=== PATIENT | female | born 1965 | race Caucasian/White ===

== ENCOUNTER → 2018-01-15 | Outpatient (CLI) | payer OTHER ==
[~2018-01-15] MED LIST: LOR5/325 PO; PER PO; REQUIP PO; TYLENOL PM PO
--- NOTE | 2018-01-15 16:51 | RADIOLOGY IMAGING REPORT ---
FACILITY: [facility] [place] PATIENT NAME: RERE LINDQUIST : [id number] MR: [id number] V: [id number] EXAM DATE: [id number] ORDERING PHYSICIAN: ELISEO DE JESUS TECHNOLOGIST: Arabella Francisco PROCEDURE:BILATERAL DIGITAL SCREENING MAMMOGRAM WITH CAD ASSISTED INTERPRETATION & 3D TOMOSYNTHESIS COMPARISON:Prior mammograms 05/25/16, 04/22/15, 04/15/14, 02/17/13. INDICATIONS:screening FINDINGS: Moderately dense heterogeneous fibroglandular tissue is seen throughout the breasts. Surgical clips in the medial inferior Left breast again noted. Just lateral to the mid nipple line junction of the middle and posterior 1/3 of the Left breast on the Left CC view is a focal area of increased density not definitively seen on prior study for which Spot compression view is recommended. In the upper portion of the Left breast on the Left MLO view junction of the middle and posterior 1/3 is a focal area of increased density for which Spot compression view is recommended. DIAGNOSTIC CATEGORY 0--INCOMPLETE: NEED ADDITIONAL IMAGING EVALUATION. RECOMMENDATIONS: ADDITIONAL MAMMOGRAPHIC VIEWS REQUIRED: LEFT BREAST. IMPRESSION: BIRADS 0: Incomplete. Additional views of the Left breast recommended for further evaluation. Dictated by: Christine Jha M.D. on 01/15/2018 at 15:50 Transcribed by: DINA on 01/15/2018 at 16:01 Approved by: Christine Jha M.D. on 01/15/2018 at 16:50 [facility]
== END ==
LOC: MAMO 02:42
PROVIDERS: ATTEND Family Medicine
DX: Z12.31 Encounter for screening mammogram for malignant neoplasm of breast (principal); R92.8 Other abnormal and inconclusive findings on diagnostic imaging of breast
CPT/HCPCS: 77063; 77067

== ENCOUNTER → 2018-02-12 | Outpatient (CLI) | payer OTHER ==
--- NOTE | 2018-02-12 14:52 | RADIOLOGY IMAGING REPORT ---
FACILITY: [facility] [place] PATIENT NAME: RERE LINDQUIST : [id number] MR: [id number] V: [id number] EXAM DATE: ORDERING PHYSICIAN: ELISEO DE JESUS TECHNOLOGIST: Arabella Francisco PROCEDURE:LEFT DIGITAL DIAGNOSTIC MAMMOGRAM WITH CAD ASSISTED INTERPRETATION & 3D TOMOSYNTHESIS COMPARISON:Prior mammograms 01/15/18, 05/25/16, 04/22/15, 04/15/14, 02/17/13. INDICATIONS:FUTHER EVAL FINDINGS: The patient returns for Spot compression view in the Left CC and MLO projections. The nodular area in the deep central Left breast on the recent Left CC view appeared compressible. The nodular area just above mid nipple line on the Left MLO view appeared to represent a well circumscribed nodule. Today's Left breast Ultrasound did demonstrate multiple cysts in the Left breast which would account for this finding. DIAGNOSTIC CATEGORY 2--BENIGN FINDING. RECOMMENDATIONS: ROUTINE MAMMOGRAM AND CLINICAL EVALUATION. IMPRESSION: BIRADS 2: Benign finding. There are multiple Left breast cysts as described in Today's Left breast Ultrasound. Dictated by: Christine Jha M.D. on 02/12/2018 at 13:26 Transcribed by: DINA on 02/12/2018 at 13:43 Approved by: Christine Jha M.D. on 02/12/2018 at 14:51 [facility]
--- NOTE | 2018-02-12 14:52 | RADIOLOGY IMAGING REPORT ---
FACILITY: [facility] [place] PATIENT NAME: RERE LINDQUIST : [id number] MR: [id number] V: [id number] EXAM DATE: [id number] ORDERING PHYSICIAN: ELISEO DE JESUS TECHNOLOGIST: Cristian Snider RDMS, RD PROCEDURE:US LEFT BREAST COMPARISON:Today's mammogram. INDICATIONS:FURTHER EVAL FINDINGS: In the 4 o'clock position of the Left breast there is a 5.4mm simple cyst. In the 3:30 position of the Left breast 6cm from the nipple is 5.5mm cyst and a 6.1mm cyst. In the 12 o'clock position of the Left breast 4cm from the nipple there is a 6.8mm cyst. DIAGNOSTIC CATEGORY 2--BENIGN FINDING. RECOMMENDATIONS: ROUTINE MAMMOGRAM AND CLINICAL EVALUATION. IMPRESSION: BIRADS 2: Benign finding. There are multiple Left sided breast cysts. This would account for Today's mammographic findings . Dictated by: Christine Jha M.D. on 02/12/2018 at 13:24 Transcribed by: DINA on 02/12/2018 at 13:54 Approved by: Christine Jha M.D. on 02/12/2018 at 14:51 [facility]
== END ==
LOC: MAMO 00:31
PROVIDERS: ATTEND Family Medicine
DX: Z12.31 Encounter for screening mammogram for malignant neoplasm of breast (principal); N60.82 Other benign mammary dysplasias of left breast
CPT/HCPCS: 77061; 77065

== ENCOUNTER → 2018-11-14 | Outpatient (CLI) | payer OTHER ==
--- NOTE | 2018-11-14 15:10 | RADIOLOGY IMAGING REPORT ---
[place] [facility] [place]IENT NAME: Melissa Aviles : 1965 MR: [id number] V: [id number] EXAM DATE: ORDERING PHYSICIAN: ELISEO DE JESUS TECHNOLOGIST: Location: [facility] Patient: Melissa Aviles : 1965 Visit/Account:[id number] Date of Sevice: 11/14/2018 ELBOW 3 VIEW RIGHT HISTORY: Pain, unknown reason. Denies injury COMPARISON: None. FINDINGS: 3 views were obtained of the right elbow. Alignment is anatomic. Joint spaces are well-maintained. There are no osteophytes or erosions. Soft tissue calcification seen near the insertion site of the triceps tendon on the olecranon, query symptoms of calcific tendinitis. There is no joint effusion. Bony mineralization is normal. No lytic or sclerotic lesions. IMPRESSION: 1. No evidence of acute osseous abnormality. 2. Soft tissue calcifications near the expected insertion site of the triceps tendon on the olecrano n, query symptoms of calcific tendinitis. Report Dictated By: Katty Ahmadi MD at 11/14/2018 3:03 PM Report E-Signed By: Katty Ahmadi MD at 11/14/2018 3:05 PM WSN:[email or web address]
== END ==
LOC: RAD 09:02
PROVIDERS: ATTEND Family Medicine
DX: M25.421 Effusion, right elbow (principal)

== ENCOUNTER 2019-02-12 02:52 | Day surgery (SDC) | payer OTHER ==
[~2019-02-12] VITALS: Ht 170.2 cm; Wt 77.1 kg
[~2019-02-12 02:52] MED LIST changes: +ACET500T68 PO; +ASCO-182 PO; +CALC500T6 PO; +CHOL10005 PO; +CRAN400C2 PO; +DIPH-740 PO; +ESOM40CA42 PO; +ESTR1PAT18 TD; +IBUP-136 PO; +L.AC1CAP6 PO; +MULT-1335 PO; +NIAC500T85 PO; +OMEG-96 PO
[2019-02-12] MEDS ORDERED: PROPOFOL EMUL(*) 10MG/ML 20 ML 60 ML ONE (07:39)
[2019-02-12] MEDS ORDERED: LIDOCAINE MPF 1% 5 ML VIAL ONE (07:39)
[2019-02-12 08:15] VITALS: BP 98/71
[2019-02-12] MEDS ORDERED: NORMOSOL R SOLN(*) 1000 ML BAG 1,000 ML IV PRN (08:40)
[2019-02-12] MEDS ORDERED: LIDOCAINE/SOD BICARB 8.4% SYR ID ONE (08:40)
[2019-02-12 09:01] LABS: PLATELET COUNT, AUTOMATED 442 K/uL (150-450)
[2019-02-12 10:26] VITALS: BP 88/58
[2019-02-12 10:50] VITALS: BP 88/63
[2019-02-12 11:13] VITALS: BP 91/56
[2019-02-12 11:45] VITALS: BP 104/87
[2019-02-12 11:46] VITALS: BP 106/82
== END 2019-02-12 12:30 | disposition home or self-care (01) ==
LOC: OR 02:52
PROVIDERS: ATTEND Internal Medicine Gastroenterology
DX: K63.5 Polyp of colon (principal); K64.9 Unspecified hemorrhoids; K57.30 Diverticulosis of large intestine without perforation or abscess without bleeding; K21.9 Gastro-esophageal reflux disease without esophagitis; K20.9 Esophagitis, unspecified; K44.9 Diaphragmatic hernia without obstruction or gangrene; K29.70 Gastritis, unspecified, without bleeding
CPT/HCPCS: 00813; 43239; 45385; 85025; 88305; 88313; 88342; J2001; J2704